=== PATIENT | male | born 1955 | race Caucasian/White ===

== ENCOUNTER → 2023-05-17 | Outpatient (CLI) | payer MEDICARE ==
[~2023-05-17] MED LIST: CATHETER FLUSH 10 ML SYR IV PRN; HOLD METFORMIN - RECEIVED CONTRAST 20 ML VIAL IV SCH; IOHEXOL 350 MG/ML 100 ML (OMNIPAQUE 350) VIAL IV ONE; NS 100 ML (IVPB) BAG IV ONE
[2023-05-17 09:56] LABS: CREATININE SERUM 0.96 MG/DL (0.60-1.30)
--- NOTE | 2023-05-17 11:43 | Diagnostic Imaging Report ---
PROCEDURE: CT chest with contrast, CT abdomen and pelvis with and without contrast. TECHNIQUE: Pre and post intravenous contrast axial imaging of the abdomen and pelvis and post contrast axial imaging of the chest were performed. Auto Exposure Controls were utilized during the CT exam to meet ALARA standards for radiation dose reduction. INDICATION: Tobacco use as well as abdominal and pelvic pain. No prior studies are available for comparison. CT CHEST: No axillary lymphadenopathy is detected. No mediastinal or hilar lymphadenopathy is detected. No pericardial or pleural fluid is identified. There are some calcified lymph nodes mediastinum and suman consistent with prior granulomatous exposure. Both lungs demonstrate significant centrilobular emphysematous changes. There are several calcific granulomas. No noncalcified nodules or masses are identified. Bony structures are nonacute. CT abdomen and pelvis: No focal liver mass is identified. Gallbladder is unremarkable. There is no biliary ductal dilatation. Pancreas and spleen are unremarkable. No adrenal mass is identified. Kidneys are unremarkable. Aorta is heavily calcified but nonaneurysmal. Bowel loops appear to be normal caliber. There is no obstruction. There is no ascites. No definite inflammatory changes are seen. The bladder and prostate are unremarkable. No definite abdominal or pelvic lymphadenopathy is detected. Bony structures are nonacute. IMPRESSION: 1. Significant centrilobular emphysematous changes. 2. No evidence of thoracic, abdominal or pelvic lymphadenopathy or metastatic disease. Dictated by: Dictated on workstation # [id number]
== END ==
LOC: RAD 09:07
PROVIDERS: ATTEND Surgery
DX: R10.9 Unspecified abdominal pain (principal); R10.2 Pelvic and perineal pain; Z72.0 Tobacco use
CPT/HCPCS: 36415; 71260; 74178; 82565; 84520

== ENCOUNTER 2023-06-19 05:52 | Outpatient (CLI) | payer MEDICARE ==
[~2023-06-19] VITALS: Ht 177.8 cm; Wt 50.8 kg
== END 2023-06-26 12:58 | disposition home or self-care (01) ==
LOC: PREOP 05:52
PROVIDERS: ATTEND Surgery
DX: Z01.818 Encounter for other preprocedural examination (principal)